=== PATIENT | female | born 1975 | race Two or more races ===

== ENCOUNTER 2021-03-28 12:11 | Day surgery (SDC) | payer OTHER ==
[~2021-03-28 12:11] MED LIST: HUMIRA PO; PEPCID PO; PROTONIX40 MG PO; TOPROL XL25 M1 PO
[2021-03-28] MEDS ORDERED: ULTRACET PO (17:53)
[2021-03-28] MEDS ORDERED: DICLOFENAC SODI75 MG PO (17:54)
== END 2021-03-28 21:20 | disposition home or self-care (01) ==
LOC: CIR.AMB 12:11
PROVIDERS: ATTEND Surgery
DX: R15.9 Full incontinence of feces (principal)

== ENCOUNTER 2021-04-15 07:35 | Day surgery (SDC) | payer OTHER ==
[~2021-04-15 07:35] MED LIST changes: +DICLOFENAC SODI75 MG PO; +ULTRACET PO
[2021-04-15] MEDS ORDERED: ULTRACET PO (10:51)
[2021-04-15] MEDS ORDERED: DICLOFENAC SODI75 MG PO (10:51)
== END 2021-04-15 14:20 | disposition home or self-care (01) ==
LOC: CIR.AMB 07:35
PROVIDERS: ATTEND Surgery
DX: R15.9 Full incontinence of feces (principal); I10 Essential (primary) hypertension; M06.9 Rheumatoid arthritis, unspecified; Z20.822 Contact with and (suspected) exposure to COVID-19